=== PATIENT | female | born 1945 | race Caucasian/White ===

== ENCOUNTER 2020-02-22 15:58 | Emergency (ER) | payer MEDICARE, BC ==
[~2020-02-22] VITALS: Ht 167.6 cm; Wt 67.1 kg
--- NOTE | 2020-02-22 17:25 | NUR ---
PT WAS EVALUATED BY DR ISIDRO. PT WAS D/C'd TO HOME. D/C INSTRUCTIONS GIVEN TO THE PT BY DR ISIDRO.
[2020-02-22 17:27] VITALS: BP 143/73
== END 2020-02-22 17:28 | disposition home or self-care (01) ==
LOC: ER 16:00
DX: S61.411A Laceration without foreign body of right hand, initial encounter (principal); W45.8XXA Other foreign body or object entering through skin, initial encounter; Y92.89 Other specified places as the place of occurrence of the external cause; E78.00 Pure hypercholesterolemia, unspecified
CPT/HCPCS: A4663

== ENCOUNTER 2020-02-24 17:53 | Emergency (ER) | payer MEDICARE, BC ==
[~2020-02-24] VITALS: Ht 167.6 cm; Wt 65.8 kg
--- NOTE | 2020-02-24 18:42 | NUR ---
Patient discharged to home in stable condition. Written and verbal after care instructions given. Patient verbalizes understanding of instructions. Stressed follow up or return to ER for worsening s/s. Patient ambulated with steady gait. no s/s of bleeding noted
[2020-02-24 18:52] VITALS: BP 133/61
== END 2020-02-24 18:42 | disposition home or self-care (01) ==
LOC: ER 17:53
DX: S61.411D Laceration without foreign body of right hand, subsequent encounter (principal); W45.8XXD Other foreign body or object entering through skin, subsequent encounter; E78.00 Pure hypercholesterolemia, unspecified
CPT/HCPCS: A4663